=== PATIENT | male | born 1970 | race Caucasian/White ===

== ENCOUNTER 2018-01-19 16:33 | Emergency (ER) | payer OTHER ==
[~2018-01-19] VITALS: Ht 177.8 cm; Wt 111.1 kg
[~2018-01-19 16:33] MED LIST: ASPIR 8181 MG PO; ASPIRIN EC325 M1 PO; CRESTOR10 MG PO; DILAUDID 2 MG TA2 MG PO; FISH OIL + VIT1 EACH; FLEXERIL PO; HM SAW PALMETT1 EACH; HYDROCODON-ACE1 EAC7 PO; HYDROCODONE-AP1 EAC6; HYDROCODONE-AP1 EAC6 PO; IMDUR 30 MG TAB30 M1 PO; KEFLEX500 MG PO; LOPRESSOR25 PO; MOTION RELIEF25 MG PO; NITROGLYCERIN0.4 MG SL; NOHOMEMEDICATIONS; NORCO 5-325 TA1 EACH PO; PERCOCET 5-3251 EACH PO; PERCOCET 7.5-31 EACH; REPATHA SY140 MG/1 M SQ; ROBAXIN 750 MG750 M1 PO; TORADOL 10 MG T10 MG; [UNRECOGNIZED DRUG - REMARK]
[2018-01-19] MEDS ORDERED: ASPIR 8181 MG PO (17:00)
[2018-01-19 18:05] LABS: ABSOLUTE BASOPHILS 0.1 thou/uL (0.0-0.2); ABSOLUTE EOSINOPHILS 0.2 thou/uL (0.0-0.7); ABSOLUTE LYMPHOCYTES 3.8 thou/uL (0.8-5.3); ABSOLUTE MONOCYTES 1.3 thou/uL (0.0-1.2); ABSOLUTE NEUTROPHILS 8.1 thou/uL (1.6-8.1); BASOPHILS 0.8 %; EOSINOPHILS 1.4 %; HEMATOCRIT 49.7 % (42.0-52.0); LYMPHOCYTES 28.2 %; MCH 30.7 pg (26.0-34.0); MCHC 34.2 g/dL (28.0-37.0); MONOCYTES 9.5 %; MPV 9.4 fl. (7.2-11.1); NUCLEATED RBCS 0 /100WBC; PLATELET COUNT* 204 thou/uL (150-400); POLYS 60.1 %; RBC 5.52 mil/uL (4.50-6.00); RDW-CV 13.2 % (10.5-14.5); WBC 13.5 thou/uL (4.0-11.0)
[2018-01-19 18:20] LABS: CALCIUM 9.2 mg/dL (8.5-10.1); POTASSIUM 3.9 mmol/L (3.5-5.1)
[2018-01-19 18:24] LABS: ALBUMIN 3.7 g/dL (3.4-5.0); TOTAL BILIRUBIN 0.3 mg/dL (<0.1-1.0); TOTAL PROTEIN 7.7 g/dL (6.4-8.2)
[2018-01-19 18:35] LABS: URINE BILIRUBIN NEGATIVE (Negative); URINE BLOOD NEGATIVE (Negative); URINE CLARITY CLEAR; URINE COLOR YELLOW; URINE GLUCOSE-RANDOM NEGATIVE (Negative); URINE KETONES NEGATIVE (Negative); URINE LEUKOCYTES-REFLEX NEGATIVE (Negative); URINE NITRITE-REFLEX NEGATIVE (Negative); URINE PROTEIN NEGATIVE (Negative); URINE SPECIFIC GRAVITY 1.025 (1.005-1.030); URINE UROBILINOGEN 0.2 E.U./dl (0.2-1.0)
[2018-01-19] MEDS ORDERED: FLAGYL500 MG PO (20:11)
[2018-01-19] MEDS ORDERED: ZOFRAN4 MG PO (20:11)
[2018-01-19] MEDS ORDERED: CIPRO500 M1 PO (20:11)
[2018-01-19] MEDS ORDERED: NORCO 5-325 TA1 EACH PO (20:14)
[2018-01-19 22:21] VITALS: BP 97/67
== END 2018-01-19 22:23 | disposition home or self-care (01) ==
LOC: M.ERS 16:33
PROVIDERS: Nurse Practitioner Family
DX: K57.92 Diverticulitis of intestine, part unspecified, without perforation or abscess without bleeding (principal); K51.90 Ulcerative colitis, unspecified, without complications; E78.00 Pure hypercholesterolemia, unspecified; F17.210 Nicotine dependence, cigarettes, uncomplicated; Z88.8 Allergy status to other drugs, medicaments and biological substances

== ENCOUNTER 2018-08-28 12:31 | Inpatient (IN) | payer OTHER ==
[~2018-08-28] VITALS: Ht 177.8 cm; Wt 112.0 kg
[~2018-08-28 12:31] MED LIST changes: +CIPRO500 M1 PO; +FLAGYL500 MG PO; +ZOFRAN4 MG PO
[2018-08-28 12:35] VITALS: BP 145/97
[2018-08-28] MEDS ORDERED: ASPIR 8181 MG PO (12:39)
[2018-08-28 12:53] LABS: ABSOLUTE BASOPHILS 0.1 thou/uL (0.0-0.2); ABSOLUTE EOSINOPHILS 0.1 thou/uL (0.0-0.7); ABSOLUTE LYMPHOCYTES 3.3 thou/uL (0.8-5.3); ABSOLUTE MONOCYTES 1.2 thou/uL (0.0-1.2); ABSOLUTE NEUTROPHILS 8.6 thou/uL (1.6-8.1); BASOPHILS 0.6 %; EOSINOPHILS 0.8 %; HEMATOCRIT 50.8 % (42.0-52.0); HEMOGLOBIN 17.2 gm/dL (14.0-18.0); LYMPHOCYTES 24.8 %; MCH 30.6 pg (26.0-34.0); MCHC 33.9 g/dL (28.0-37.0); MCV 90.3 fL (80.0-100.0); MONOCYTES 8.9 %; MPV 8.8 fl. (7.2-11.1); NUCLEATED RBCS 0 /100WBC; PLATELET COUNT* 234 thou/uL (150-400); POLYS 64.9 %; RBC 5.63 mil/uL (4.50-6.00); RDW-CV 13.2 % (10.5-14.5); WBC 13.2 thou/uL (4.0-11.0)
[2018-08-28 12:59] LABS: CALCIUM 9.1 mg/dL (8.5-10.1); CREATININE 0.9 mg/dL (0.6-1.3)
[2018-08-28 13:03] LABS: ALBUMIN 3.9 g/dL (3.4-5.0); TOTAL BILIRUBIN 0.5 mg/dL (<0.1-1.0)
[2018-08-28 13:06] LABS: URINE BILIRUBIN NEGATIVE (Negative); URINE BLOOD NEGATIVE (Negative); URINE CLARITY CLEAR; URINE COLOR YELLOW; URINE GLUCOSE-RANDOM NEGATIVE (Negative); URINE KETONES NEGATIVE (Negative); URINE LEUKOCYTES-REFLEX NEGATIVE (Negative); URINE NITRITE-REFLEX NEGATIVE (Negative); URINE PROTEIN NEGATIVE (Negative); URINE UROBILINOGEN 0.2 E.U./dl (0.2-1.0)
[2018-08-28 16:06] VITALS: BP 115/73
[2018-08-28 16:42] VITALS: BP 134/84
[2018-08-28 23:10] VITALS: BP 136/77
[2018-08-29 04:33] LABS: ABSOLUTE EOSINOPHILS 0.1 thou/uL (0.0-0.7); ABSOLUTE LYMPHOCYTES 2.5 thou/uL (0.8-5.3); ABSOLUTE MONOCYTES 1.1 thou/uL (0.0-1.2); ABSOLUTE NEUTROPHILS 7.8 thou/uL (1.6-8.1); BASOPHILS 0.4 %; EOSINOPHILS 1.2 %; HEMATOCRIT 47.4 % (42.0-52.0); HEMOGLOBIN 16.3 gm/dL (14.0-18.0); LYMPHOCYTES 21.5 %; MCHC 34.3 g/dL (28.0-37.0); MCV 90.2 fL (80.0-100.0); MONOCYTES 9.8 %; MPV 9.5 fl. (7.2-11.1); NUCLEATED RBCS 0 /100WBC; PLATELET COUNT* 228 thou/uL (150-400); POLYS 67.1 %; RBC 5.26 mil/uL (4.50-6.00); WBC 11.6 thou/uL (4.0-11.0)
[2018-08-29 04:40] LABS: CALCIUM 8.8 mg/dL (8.5-10.1); CREATININE 0.9 mg/dL (0.6-1.3); POTASSIUM 4.4 mmol/L (3.5-5.1)
[2018-08-29 08:30] VITALS: BP 98/60
[2018-08-29 16:00] VITALS: BP 119/61
[2018-08-30 00:22] VITALS: BP 120/82
[2018-08-30 04:19] LABS: ABSOLUTE BASOPHILS 0.1 thou/uL (0.0-0.2); ABSOLUTE EOSINOPHILS 0.2 thou/uL (0.0-0.7); ABSOLUTE MONOCYTES 0.8 thou/uL (0.0-1.2); ABSOLUTE NEUTROPHILS 4.1 thou/uL (1.6-8.1); BASOPHILS 0.7 %; EOSINOPHILS 2.2 %; HEMATOCRIT 43.8 % (42.0-52.0); HEMOGLOBIN 14.9 gm/dL (14.0-18.0); LYMPHOCYTES 36.9 %; MCH 30.7 pg (26.0-34.0); MCV 90.3 fL (80.0-100.0); MONOCYTES 9.6 %; MPV 9.2 fl. (7.2-11.1); NUCLEATED RBCS 0 /100WBC; PLATELET COUNT* 200 thou/uL (150-400); POLYS 50.6 %; RBC 4.85 mil/uL (4.50-6.00); RDW-CV 12.8 % (10.5-14.5); WBC 8.1 thou/uL (4.0-11.0)
[2018-08-30 04:42] LABS: ALBUMIN 3.1 g/dL (3.4-5.0); CALCIUM 8.5 mg/dL (8.5-10.1); CREATININE 0.9 mg/dL (0.6-1.3); POTASSIUM 3.8 mmol/L (3.5-5.1); TOTAL BILIRUBIN 0.4 mg/dL (<0.1-1.0); TOTAL PROTEIN 6.9 g/dL (6.4-8.2)
[2018-08-30 08:05] VITALS: BP 124/78
[2018-08-30 09:50] VITALS: BP 124/78
[2018-08-30] MEDS ORDERED: CIPRO500 MG PO (09:56)
[2018-08-30] MEDS ORDERED: FLAGYL500 M1 PO (09:57)
[2018-08-30] MEDS ORDERED: HYDROCODONE-AP1 EAC6 PO (09:58)
--- NOTE | 2018-09-07 11:22 | CON ---
[address] [address] CONSULTATION Name: LAVELLE LEVIN Room: [address] M.R.#: [id number] Admission: 08/28/18 Attend Phys: Shawn Rosas MD Discharge: 08/30/18 Date of : 72 Report #: [id number] THIS REPORT FOR: //name// CC: Shawn Posada HISTORY OF PRESENT ILLNESS: The patient is a pleasant 47-year-old male with past medical history significant for coronary artery disease, prior episode of diverticulitis, and hypertension, who is presenting for evaluation of abdominal pain. The patient reports that he has had abdominal pain for the last 4-5 days and this has been getting progressively worse. The patient reports the pain is located in the suprapubic and right lower quadrant regions. It is severe, nonradiating and localized. The patient reports the pain bears no relation to food or bowel movements. He denies any diarrhea, hematochezia, nausea, vomiting or hematemesis. The patient also denies any fevers or chills. The patient reports that he was diagnosed with but he was never placed on any medications as it did not seem to progress. He was also diagnosed with diverticulitis a few years back which resolved after antibiotic therapy and he has had a colonoscopy about 3 years back, which was normal. PAST MEDICAL HISTORY: As mentioned above, the patient has a past medical history of coronary artery disease, hypertension, and diverticulitis. PAST SURGICAL HISTORY: The patient had surgery for rotator cuff and right biceps tendon . FAMILY HISTORY: Negative for ulcerative colitis, inflammatory bowel disease, colon cancer. SOCIAL HISTORY: The patient reports 1 pack per day smoking history and has a [id number] history of smoking. He denies significant alcohol use and reports remote recreational drug use. REVIEW OF SYSTEMS: A comprehensive 10-point review of systems is negative except for what was mentioned above. PHYSICAL EXAMINATION: VITAL SIGNS: Temperature 36.8, pulse rate , respirations 16, blood pressure 119/61. GENERAL: The patient is alert, awake, oriented x 3. HEENT: Pupils are equal, round, reactive to light and accommodation. Mucous membranes are moist. There is no congestion. NECK: Supple. There is no supraclavicular lymphadenopathy. CARDIOVASCULAR: Rate and rhythm regular; S1, S2 present. LUNGS: Clear to auscultation bilaterally. ABDOMEN: Tenderness is noted on deep palpation in suprapubic [place] [address] CONSULTATION Name: LAVELLE LEVIN Room: [address]#: [id number] Admission: 08/28/18 Attend Phys: Shawn Rosas MD Discharge: 08/30/18 Date of : 72 Report #: [id number] quadrant region. EXTREMITIES: Warm, well perfused. There is no edema. NEUROLOGIC: There are no focal neurological deficits. SKIN: Warm and dry. LABORATORY DATA: Hemoglobin 16.3, hematocrit 47.4, platelet count 228, WBC count 11.6. Sodium 138, potassium 4.4, chloride 103, bicarbonate 26, BUN 10, creatinine 0.9, bilirubin 0.5, AST 17, ALT 28, alkaline phosphatase 99, lipase 336. Abdominal and pelvis CT, colonic diverticulitis with focal bowel wall thickening and pericolonic mesenteric inflammatory change involving rectosigmoid colon. Findings are consistent with recurrent acute diverticulitis. No abscess, free air, or ascites seen. ASSESSMENT AND PLAN: This is a very pleasant 47-year-old male with past medical history significant for coronary artery disease and diverticulitis with possible diagnosed in the remote past abdominal pain. CT abdomen and pelvis uncomplicated acute diverticulitis involving the of the sigmoid colon. I would recommend switching antibiotics from IV to p.o. and I would place him on a regular diet and if the patient will be tolerate both he can be discharged. An outpatient colonoscopy will be set up in 4-6 weeks' time for followup. <ELECTRONICALLY SIGNED> By: Conrad Cuevas MD 09/07/18 1122 [id number] Cuevas MD /nt
== END 2018-08-30 10:10 | disposition home or self-care (01) | DRG 392 ==
LOC: M.ERS 12:31 → M.TBA-ER 14:34 → M.3W 14:34
PROVIDERS: Physician Assistant; Surgery; ADMIT Internal Medicine
DX: K57.32 Diverticulitis of large intestine without perforation or abscess without bleeding (principal); R65.10 Systemic inflammatory response syndrome (SIRS) of non-infectious origin without acute organ dysfunction; E78.00 Pure hypercholesterolemia, unspecified; I25.10 Atherosclerotic heart disease of native coronary artery without angina pectoris; I10 Essential (primary) hypertension; F17.210 Nicotine dependence, cigarettes, uncomplicated; Z79.899 Other long term (current) drug therapy; Z79.82 Long term (current) use of aspirin; Z82.49 Family history of ischemic heart disease and other diseases of the circulatory system; Z95.5 Presence of coronary angioplasty implant and graft; Z98.52 Vasectomy status; Z88.8 Allergy status to other drugs, medicaments and biological substances; Z83.3 Family history of diabetes mellitus

== ENCOUNTER → 2018-09-18 | Outpatient (CLI) | payer OTHER ==
[~2018-09-18] MED LIST changes: +CIPRO500 MG PO; +FLAGYL500 M1 PO
== END ==
LOC: M.CT 08:45
DX: K57.32 Diverticulitis of large intestine without perforation or abscess without bleeding (principal); I25.10 Atherosclerotic heart disease of native coronary artery without angina pectoris